=== PATIENT | female | born 1985 | race African-American/Black ===

== ENCOUNTER 2017-03-23 07:53 | Emergency (ER) | payer OTHER ==
[2017-03-23 07:59] VITALS: BP 118/61; PULSE 68; TEMP 98; BMI 36.3
[2017-03-23] MEDS ORDERED: ALBUTEROL SO4 0.083% IH SOL 2.5 MG/3 ML VIAL.NEB. NEB ONE ×2 (08:23→08:26)
--- NOTE | 2017-03-23 08:39 | PDOC ---
History of Present Illness - General Chief Complaint: Cold Symptoms Stated Complaint: FEVER Time Seen by Provider: 03/23/17 08:19 History Source: Patient Exam Limitations: No Limitations - History of Present Illness Initial Comments: 03/23/17 08:24 31 yr female with c/o cough worse at night. no fever no sore throat. pt did not take any meds for her symptoms [employer]. no body aches. no abd pain. Past History - Past Medical History Allergies/Adverse Reactions: Allergies Allergy/AdvReac Type Severity Reaction Status Date / Time No Known Allergies Allergy Verified 03/23/17 07:56 Home Medications: Ambulatory Orders Albuterol Sulfate Inhaler - [Ventolin HFA Inhaler -] 1 - 2 inh PO Q4H #1 inhaler 03/23/17 Asthma: No Cancer: No Cardiac Disorders: No COPD: No Diabetes: No HTN: No Seizures: No Thyroid Disease: No - Suicide/Smoking/Psychosocial Hx Smoking Status: No Smoking History: Never smoked Have you smoked in the past 12 months: No Number of Cigarettes Smoked Daily: 0 Information on smoking cessation initiated: No Hx Alcohol Use: No Drug/Substance Use Hx: No Substance Use Type: None Hx Substance Use Treatment: No *Physical Exam - Vital Signs Last Vital Signs Temp Pulse Resp BP Pulse Ox 98.0 F 68 18 118/61 100 03/23/17 07:56 03/23/17 07:56 03/23/17 07:56 03/23/17 07:56 03/23/17 07:56 - Physical Exam General Appearance: Yes: Nourished, Appropriately Dressed HEENT: positive: EOMI, SONJA Respiratory/Chest: positive: Lungs Clear, Normal Breath Sounds, Other Cardiovascular: positive: Regular Rhythm, Regular Rate Gastrointestinal/Abdominal: positive: Normal Bowel Sounds, Soft Musculoskeletal: positive: Normal Inspection Extremity: positive: Normal Capillary Refill, Normal Inspection, Normal Range of Motion Integumentary: positive: Normal Color, Dry, Warm Neurologic: positive: Fully Oriented, Alert, Normal Mood/Affect, Normal Response , Motor Strength 5/5 Medical Decision Making - Medical Decision Making 03/23/17 08:25 cc: cough worse at night 2 days no fever or abd pain no chest pain no medical history non smoker no asthma history will give albuterol neb x1 for cough, tightness in front of chest 03/23/17 08:45 pt feels better after the nebulizer will dc home with albuterol inhaler *DC/Admit/Observation/Transfer Diagnosis at time of Disposition: Viral URI with cough - Discharge Dispostion Disposition: HOME Condition at time of disposition: Good - Prescriptions Prescriptions: Albuterol Sulfate Inhaler - [Ventolin HFA Inhaler -] 1 - 2 inh PO Q4H #1 inhaler - Referrals Referrals: Israel Joy MD [Primary Care Provider] - - Patient Instructions Additional Instructions: drink pleanty of water throat lozengers of your choice tea with honey and lemon especially before bedtime can be very helpful follow with your doctor in 2-3 days if any worsening symptoms return to ER if any worsening symptoms , any fever - Post Discharge Activity Forms/Work/School Notes: Back to Work, Back to School
== END 2017-03-23 08:59 | disposition home or self-care (01) ==
LOC: JERFT 07:53
PROC: 3E0F7GC Introduction of Other Therapeutic Substance into Respiratory Tract, Via Natural or Artificial Opening (ICD-10-PCS; principal; 2017-03-23)
DX: J06.9 Acute upper respiratory infection, unspecified (principal); B97.89 Other viral agents as the cause of diseases classified elsewhere
CPT/HCPCS: 99281-25